=== PATIENT | female | born 1995 | race American Indian/Alaskan Native ===

== ENCOUNTER 2017-07-08 09:04 | Outpatient (CLI) | payer OTHER ==
[2017-07-08] MEDS ORDERED: LACTATED RINGERS 500 ML IV ONE (17:15)
== END 2017-07-08 14:45 | disposition home or self-care (01) ==
LOC: LAB 09:04 → TRG 11:03 → LAB 14:45
PROVIDERS: ATTEND Obstetrics & Gynecology
DX: O36.0130 Maternal care for anti-D [Rh] antibodies, third trimester, not applicable or unspecified (principal); Z3A.28 28 weeks gestation of pregnancy
CPT/HCPCS: 86850; 86900; 86901; 96372; J2790

== ENCOUNTER 2017-09-16 10:16 | Outpatient (CLI) | payer OTHER ==
[2017-09-16 10:34] VITALS: BP 108/70
--- NOTE | 2017-09-16 12:51 | Ultrasound Report ---
ULTRASOUND OB LIMITED History: Decreased movement Technique: Transabdominal ultrasound with Doppler interrogation. Gestation: Single Position: Cephalic Amniotic Fluid: Normal RONEN = 16.0 cm Heart Rate: 167 BPM
--- NOTE | 2017-09-16 12:51 | Ultrasound Report ---
ULTRASOUND BIOPHYSICAL PROFILE: History: Decreased movement Technique: Transabdominal ultrasound with Doppler interrogation. 2 - breathing movements 2 - movements 2 - posture and tone 2 - Qualitative amniotic fluid volume 8 - TOTAL SCORE OF POSSIBLE 8 Heart Rate (bpm) 167
== END 2017-09-16 13:32 | disposition home or self-care (01) ==
LOC: TRG 10:16
PROVIDERS: ATTEND Obstetrics & Gynecology
DX: O47.1 False labor at or after 37 completed weeks of gestation (principal); Z3A.38 38 weeks gestation of pregnancy
CPT/HCPCS: 59025; 76815; 76819

== ENCOUNTER 2017-09-20 07:18 | Outpatient (CLI) | payer OTHER ==
[2017-09-20 07:32] VITALS: BP 107/67
[2017-09-20] MEDS ORDERED: ZOFRAN ODT PO ONE (07:55)
[2017-09-20 08:35] LABS: Bacteria,Urine 1+ /HPF (Negative); Bilirubin,Urine NEG (Negative); Blood,Urine NEG (Negative); Color,Urine Yellow (Yellow); Mucus,Urine FEW /HPF; Protein,Urine <15 mg/dL mg/dL (Negative)
--- NOTE | 2017-09-20 12:45 | Progress Note ---
Assessment and Plan A: at 38 weeks, 4 days gestation. False labor. UTI. P: Discharge patient home with labor precautions. Rx Macrobid called to patient's pharmacy (100 mg po BID for 1 week). Labor precautions. Daily movement counting. Follow up with [facility] within next 2 days. Subjective - Subjective Date of service: 09/20/17 Principal diagnosis: at 38 weeks, 4 days gestation; false labor Interval history: 21 year old female at 38 weeks, 4 days gestation presents to L&D to rule out labor. She reports irregular contractions. She denies VB or LOF. She reports active movement. Patient reports she had some nausea and vomiting earlier this morning. She denies diarrhea. She denies fever or chills or malaise. NST is reactive. Patient is not in active labor. Urinalysis shows large leukocytes. Patient reports: contractions Objective - Vital Signs Vital Signs: Vital Signs - 12hr 09/20/17 09/20/17 07:32 07:36 Temperature 98.5 F Pulse Rate 95 H Respiratory 18 Rate Blood Pressure 107/67 - Exam Abdomen: Present: soft FHR: category 1 Uterine Contraction Monitor Mode: External Cervical Dilatation: 1 Cervical Effacement Percentage: 70 station: -3 Uterine Contraction Frequency (min): Irregular - Labs Labs: Laboratory Results - last 24 hr 09/20/17 07:55 Urine Color Yellow Urine Turbidity Clear Urine pH 7.0 Ur Specific [place] 1.010 Urine Protein <15 mg/dl Urine Glucose (UA) Neg Urine Ketones Neg Urine Blood Neg Urine Nitrite Neg Urine Bilirubin Neg Urine Urobilinogen 2.0 Ur Leukocyte Esterase Lg Urine WBC (Auto) 5.0 Urine RBC (Auto) 2.0 U Epithel Cells (Auto) 8.0 Urine Bacteria (Auto) 1+ Urine Mucus Few
== END 2017-09-20 07:55 | disposition home or self-care (01) ==
LOC: TRG 07:18
PROVIDERS: ATTEND Obstetrics & Gynecology
DX: O47.1 False labor at or after 37 completed weeks of gestation (principal); Z3A.38 38 weeks gestation of pregnancy
CPT/HCPCS: 81001; Q0162

== ENCOUNTER 2017-09-24 10:55 | Inpatient (IN) | payer OTHER ==
[2017-09-24] MEDS ORDERED: XYLOCAINE 2% INFILTRATI ONE (12:16)
[2017-09-24] MEDS ORDERED: ZOFRAN IV PRN (12:16)
[2017-09-24] MEDS ORDERED: STADOL IV PRN (12:16)
[2017-09-24] MEDS ORDERED: MINERAL OIL PO PRN (12:16)
[2017-09-24] MEDS ORDERED: BRETHINE IVP PRN (12:16)
[2017-09-24] MEDS ORDERED: ePHEDrine SULFATE IV PRN ×2 (12:16→15:38)
[2017-09-24] MEDS ORDERED: BRETHINE SUB-Q PRN (12:16)
[2017-09-24 13:16] LABS: Hematocrit 31.6 % (30.3-42.9); Hemoglobin 10.4 gm/dl (10.1-14.3); Mean Corpuscular HGB Conc 33 % (30-34); Mean Corpuscular Volume 70 fl (79-97); Platelet Count 204 K/mm3 (140-440); Red Blood Count 4.52 M/mm3 (3.65-5.03); Red Cell Distribution Width 17.7 % (13.2-15.2)
[2017-09-24 13:20] LABS: Mean Corpuscular Hemoglobin 23 pg (28-32)
[2017-09-24] MEDS: LACTATED RINGERS 1,000 ML IV SCH ×3 (14:28→21:01)
[2017-09-24] MEDS ORDERED: NARCAN 2 MG/2 ML IV PRN (15:38)
--- NOTE | 2017-09-24 15:38 | Anesthesia Consultation ---
Anesthesia Consult and Med Hx Date of service: 09/24/17 - Airway Anesthetic Teeth Evaluation: Good ROM Head & Neck: Adequate Mental/Hyoid Distance: Adequate Mallampati Class: Class II Intubation Access Assessment: Probably Good - Pre-Operative Health Status ASA Pre-Surgery Classification: ASA2 Proposed Anesthetic Plan: Epidural, Spinal - Pulmonary Hx Asthma: No COPD: No Hx Pneumonia: No - Cardiovascular System Hx Hypertension: No - Central Nervous System Hx Seizures: No Hx Psychiatric Problems: No - Endocrine Hx Renal Disease: No Hx End Stage Renal Disease: No Hx Hypothyroidism: No Hx Hyperthyroidism: No - Hematic Hx Anemia: Yes Hx Sickle Cell Disease: Yes (trait) - Other Systems Hx Alcohol Use: No
[2017-09-24] MEDS: PITOCin/NS 30 UNIT/500ML 30 UNITS/500 ML BAG IV SCH ×4 (16:03→22:45)
[2017-09-24] MEDS: fentaNYL-BUPIV 2 MCG/ML-0.125% 200 MCG/100 ML BAG EPIDURAL SCH ×2 (16:03→22:43)
--- NOTE | 2017-09-24 23:07 | History and Physical Report ---
History of Present Illness Date of admission: 09/24/17 10:56 Chief complaint: loss of fluid History of present illness: 21yo 39 2/7wks presents to L&D complaining of spontaneous rupture of membranes at 8AM. She reports good movement and no vaginal bleeding. Upon my evaluation she is in active labor with epidural in place. She is experiencing painful contractions and on Pitocin 10. She has received routine care as a transfer from [place] to [facility] at 23 weeks. She is Rh negative and has sickle cell trait. GBS negative Past History - Obstetrical History : 1 Medications and Allergies Allergies Allergy/AdvReac Type Severity Reaction Status Date / Time No Known Allergies Allergy Verified 07/08/17 11:56 Home Medications Medication Instructions Recorded Confirmed Last Taken Type No Known Home Medications [No 01/19/16 09/24/17 Unknown History Reported Home Medications] Active Meds: Active Medications Butorphanol Tartrate (Stadol) 1 mg IV Q2H PRN PRN Reason: Pain, Moderate (4-6) Last Admin: 09/24/17 14:27 Dose: 1 mg Ephedrine Sulfate (Ephedrine Sulfate) 10 mg IV Q2M PRN PRN Reason: Hypotension Lactated Ringer's (Lactated Ringers) 1,000 mls @ 125 mls/hr IV DIRECT ALEIDA Last Admin: 09/24/17 21:01 Dose: 125 mls/hr Oxytocin/Sodium Chloride (Pitocin/Ns 20 Unit/1000ml Drip) 20 units in 1,000 mls @ 125 mls/hr IV DIRECT ALEIDA Oxytocin/Sodium Chloride (Pitocin/Ns 30 Unit/500ml) 30 units in 500 mls @ 1 mls /hr IV TITR ALEIDA; Protocol Last Admin: 09/24/17 22:45 Dose: 8 milliunits/min, 8 mls/hr Fentanyl/Bupivacaine/Sodium Chlor (Fentanyl-Bupiv 2 Mcg/Ml-0.125%) 200 mcg in 100 mls @ 12 mls/hr EPIDURAL TITR ALEIDA; Protocol Last Admin: 09/24/17 22:43 Dose: 12 mls/hr Mineral Oil (Mineral Oil) 30 ml PO QHS PRN PRN Reason: Constipation Naloxone HCl (Narcan 2 Mg/2 Ml) 0.2 mg IV Q5M PRN PRN Reason: Respiratory sedation Ondansetron HCl (Zofran) 4 mg IV Q8H PRN PRN Reason: Nausea And Vomiting Last Admin: 09/24/17 21:16 Dose: 4 mg Terbutaline Sulfate (Brethine) 0.25 mg SUB-Q ONCE PRN PRN Reason: Hyperstimulation/Hypertonicity Terbutaline Sulfate (Brethine) 0.25 mg IVP ONCE PRN PRN Reason: Hyperstimulation/Hypertonicity - Vital Signs Vital signs: Vital Signs Pulse BP 110 H 119/77 09/24/17 11:48 09/24/17 11:48 Temp Pulse Resp BP Pulse Ox 98.7 F 109 H 18 113/68 98 09/24/17 18:56 09/24/17 23:07 09/24/17 12:06 09/24/17 22:39 09/24/17 23:07 - Obstetrical FHR: auscultation normal Cervical Dilatation: 8 Cervical Effacement Percentage: 90 station: -1 Uterine Contraction Frequency (min): 1-2 Uterine Contraction Pattern: Regular Results Result Diagrams: 09/24/17 13:00 Abnormal lab results 09/24/17 Range/Units 13:00 WBC 13.7 H (4.5-11.0) K/mm3 MCV 70 L (79-97) fl MCH 23 L (28-32) pg RDW 17.7 H (13.2-15.2) % All other labs normal. Assessment and Plan - Patient Problems (1) 39 weeks gestation of Current Visit: Yes Status: Acute (2) Spontaneous rupture of membranes Current Visit: Yes Status: Acute Plan to address problem: 1. Continue labor augmentation with Pitocin. 2. IVF, routine labs done. 3. Anticipate . (3) Anemia affecting Current Visit: Yes Status: Acute Plan to address problem: s/p Rhogam antepartum Rhogam if indicated. (4) Rh negative status during Current Visit: Yes Status: Acute
[2017-09-25] MEDS ORDERED: XYLOCAINE 2% INFILTRATI ONE (01:32)
[2017-09-25] MEDS: PITOCin/NS 20 UNIT/1000ML DRIP 20 UNITS/1,000 ML BAG IV SCH ×2 (02:23→04:48)
--- NOTE | 2017-09-25 02:55 | Procedure Note ---
OB Delivery Note - Vaginal Delivery presentation: vertex Delivery augmentation: rupture of membranes, pitocin Delivery monitor: external FHT Route of delivery: Delivery placenta: spontaneous (3 VC, cord blood collected) Delivery laceration: 2nd degree, vaginal side wall (left sulcus), other (R labial) Delivery repair: vicryl (2-0 and 3-0) Delivery comments: Anesthesia: Epidural and 14ml 2% Lidocaine intradermal - Infant A at 1 minute: 8 at 5 minutes: 9 Gender: Female (Weight 7lb 7 oz)
[2017-09-25] MEDS ORDERED: PHENERGAN PO PRN (02:58)
[2017-09-25] MEDS ORDERED: MILK OF MAGNESIA PO PRN (02:58)
[2017-09-25] MEDS ORDERED: BENADRYL PO PRN (02:58)
[2017-09-25] MEDS ORDERED: PHENERGAN PR PRN (02:58)
[2017-09-25] MEDS ORDERED: ZOFRAN IV PRN (02:58)
[2017-09-25] MEDS ORDERED: DULCOLAX PR PRN (02:58)
[2017-09-25] MEDS ORDERED: LANSINOH TP PRN (02:58)
[2017-09-25] MEDS ORDERED: TUCKS PAD TP PRN (02:58)
[2017-09-25] MEDS ORDERED: TYLENOL PO PRN (02:58)
[2017-09-25] MEDS ORDERED: SODIUM CHLORIDE FLUSH SYRINGE 10 ML IV PRN (03:00)
[2017-09-25] MEDS: MOTRIN PO SCH ×3 (03:18→18:15)
[2017-09-25] MEDS ORDERED: DERMOPLAST TP PRN (04:30)
[2017-09-25] MEDS: NORCO 5/325 PO PRN ×2 (04:49→18:05)
[2017-09-25] MEDS: FEOSOL PO SCH (12:30)
[2017-09-25 21:26] LABS: Hematocrit 26.7 % (30.3-42.9); Hemoglobin 8.6 gm/dl (10.1-14.3)
[2017-09-26] MEDS: MOTRIN PO SCH ×2 (03:19→12:51)
[2017-09-26] MEDS: FEOSOL PO SCH (10:34)
--- NOTE | 2017-09-26 12:12 | Progress Note ---
Assessment and Plan A: day 1 S/P . Anemia. P: Discharge patient home this afternoon. Advised patient to continue taking her vitamin and iron supplements at home (pt. states she has Rx for these already). Rx Motrin 800 mg, #30, 1 po every 8 hours prn pain with no refills was called to [facility] pharmacy on [address] Discussed with patient discharge instructions and warning signs. Advised patient to avoid IC, avoid lifting and heavy housework, and avoid driving. Advised pt. to follow up at [facility] in 6 weeks and prn. Patient voiced understanding of all instructions. Subjective - Subjective Date of service: 09/26/17 Principal diagnosis: day 1 S/P spontaneous vaginal delivery Interval history: day 1 S/P spontaneous vaginal delivery. Patient desires discharge today. Patient is doing well. She reports a small amount of lochia. Patient is voiding without difficulty and ambulating well. She is tolerating a regular diet without nausea or vomiting. She is bottlefeeding. Patient denies headache, chest pain, cough, shortness of breath, abdominal pain , leg pain, heavy bleeding, or symptoms of depression. Patient is planning to use Nexplanon for contraception at 8 weeks . Patient reports: appetite normal, voiding normally, pain well controlled, flatus , ambulating normally [place]: doing well Objective - Vital Signs Latest vital signs: Vital Signs Temp Pulse Resp BP BP Pulse Ox 09/26/17 07:57 98.0 F 96 H 18 118/70 98 09/26/17 00:00 98.7 F 79 16 104/78 09/25/17 20:00 98.7 F 76 18 92/44 09/25/17 16:10 98.6 F 105 H 18 123/76 Intake and Output 09/25/17 09/26/17 09/26/17 23:59 07:59 15:59 Intake Total 420 Balance 420 Intake: Oral 120 Intake, Free Water 300 Other: Total, Intake Amount 120 - Exam Breasts: Present: deferred Cardiovascular: Present: Regular rate, Normal S1, Normal S2 Lungs: Present: Clear to auscultation Abdomen: Present: normal appearance, soft, normal bowel sounds. Absent: distention, tenderness, guarding, rigidity Uterus: Present: normal, firm, fundal height below umbilicus. Absent: bogginess , tenderness Extremities: Present: normal. Absent: tenderness, edema - Labs Labs: Abnormal lab results 09/25/17 Range/Units 19:56 Hgb 8.6 L (10.1-14.3) gm/dl Hct 26.7 L (30.3-42.9) %
--- NOTE | 2017-09-26 12:20 | Discharge Summary ---
Providers - Providers Date of Admission: 09/25/17 14:07 Date of discharge: 09/26/17 Attending physician: ERLINDA GUTHRIE MD Primary care physician: ERLINDA GUTHRIE MD Hospitalization Reason for admission: active labor, IUP at term Delivery: Episiotomy: none Laceration: 1st degree Other procedures: none complications: none Pertinent studies: Labs Hospital course: Normal hospital course. Condition at discharge: Good Disposition: DC-01 TO HOME OR SELFCARE - Discharge Diagnoses (1) Term delivered Status: Acute Plan - Provider Discharge Summary Activity: routine, no sex for 6 weeks, no heavy lifting 4 weeks, no strenuous exercise Diet: routine Instructions: routine Additional instructions: Call your doctor immediately for: * Fever > 100.5 * Heavy vaginal bleeding ( >1 pad per hour) * Severe persistent headache * Shortness of breath * Reddened, hot, painful area to leg or breast Continue your vitamin and iron supplements at home. Also take Motrin 800 mg po every 8 hours prn pain. Rx was called to [facility] on [address] - Follow up plan Follow up: ERLINDA GUTHRIE MD [Primary Care Provider] - 6 Weeks
[2017-09-26 17:02] VITALS: BP 133/72
== END 2017-09-26 16:52 | disposition home or self-care (01) | DRG 775 ==
LOC: TRG 10:55 → INTOOBSV 10:56 → LD 10:56 → TRG 10:57 → OB 09-25 03:49 → OBSVTOIN 09-25 14:07
PROVIDERS: ADMIT Obstetrics & Gynecology; ATTEND Obstetrics & Gynecology
PROC: 10E0XZZ Delivery of Products of Conception, External Approach (ICD-10-PCS; principal; 2017-09-25)
PROC: 0KQM0ZZ Repair Perineum Muscle, Open Approach (ICD-10-PCS; 2017-09-25)
PROC: 0UQMXZZ Repair Vulva, External Approach (ICD-10-PCS; 2017-09-25)
PROC: 3E0R3BZ Introduction of Anesthetic Agent into Spinal Canal, Percutaneous Approach (ICD-10-PCS; 2017-09-25)
PROC: 00HU33Z Insertion of Infusion Device into Spinal Canal, Percutaneous Approach (ICD-10-PCS; 2017-09-25)
DX: O42.02 Full-term premature rupture of membranes, onset of labor within 24 hours of rupture (principal); O99.02 Anemia complicating childbirth; D57.3 Sickle-cell trait; O70.1 Second degree perineal laceration during delivery; Z3A.39 39 weeks gestation of pregnancy; Z37.0 Single live birth; Z67.11 Type A blood, Rh negative; O75.89 Other specified complications of labor and delivery
CPT/HCPCS: 36415; 85014; 85018; 85027; 86592; 86850; 86900; 86901; A6250; G0378; J0595; J2405; J2590; J7120